=== PATIENT | male | born 1965 | race African-American/Black ===

== ENCOUNTER 2022-11-05 14:15 | Emergency (ER) | payer OTHER ==
[~2022-11-05] VITALS: Ht 188 cm; Wt 118.0 kg
[2022-11-05 14:32] VITALS: BP 170/85; PULSE 70; RESP 18; TEMP 97.9; O2SAT 99
[2022-11-05 14:59] LABS: HEMATOCRIT. 37.3 % (42.0-52.0); HEMOGLOBIN. 11.4 g/dL (14.0-18.0); MEAN CORPUSCULAR HEMOGLOBIN 21.2 pg (28.0-32.0); MEAN CORPUSCULAR HGB CONC 30.4 g/dL (31.0-37.0); MEAN CORPUSCULAR VOLUME 69.7 fL (80.0-94.0); MEAN PLATELET VOLUME 7.8 fl (7.4-10.4); PLATELET 298 x1000/uL (130-400); RED BLOOD CELL COUNT 5.35 mill/uL (4.7-6.1); RED CELL DISTRIBUTION WIDTH 18.5 % (11.6-14.6); WHITE BLOOD COUNT 6.4 x1000/uL (4.5-11.0)
[2022-11-05 15:08] LABS: INR 1.1; PROTHROMBIN TIME 12.2 sec (9.6-11.0)
[2022-11-05 15:11] LABS: DIFFERENTIAL COMMENT 1
[2022-11-05 15:23] LABS: CHLORIDE 113 mEq/L (98-107); INDEX HEMOLYSI 3 (1-3); INDEX ICTERIC 1 (1-4); INDEX LIPEMIC 1 (1-3); SODIUM 141 mEq/L (136-145)
[2022-11-05 15:37] LABS: ALANINE AMINOTRANSFERASE 29 IU/L (13-61); ALBUMIN 2.8 g/dL (3.4-5.0); ASPARTATE AMINOTRANSFERASE 32 IU/L (15-37); BILIRUBIN TOTAL 0.7 mg/dL (0.1-1.0); CALCIUM 8.3 mg/dL (8.5-10.1); CARBON DIOXIDE 26 mEq/L (21-32); CREATININE 1.6 mg/dL (0.6-1.3); GLUCOSE 72 mg/dL (70-105); NT PRO B-TYPE NATRIURETIC PEP 14102 pg/mL (5-125); PROTEIN TOTAL 7.4 g/dL (6.0-8.3); TROPONIN I HIGH SENSITIVITY 44 ng/L (<78); UREA NITROGEN BLOOD 27 mg/dL (7-21)
[2022-11-05 15:55] LABS: MICROCYTOSIS 3+; PLATELET ESTIMATE NORMAL
[2022-11-05 15:56] LABS: ANISOCYTOSIS 2+; HYPOCHROMASIA 2+
[2022-11-05] MEDS ORDERED: FURO-151 MT (17:46)
[2022-11-05] MEDS ORDERED: FUROSEMIDE 40MG TABLET PO ONE (18:00)
== END 2022-11-05 18:22 | disposition home or self-care (01) ==
LOC: ER 14:42
DX: I11.0 Hypertensive heart disease with heart failure (principal); I50.9 Heart failure, unspecified; N17.9 Acute kidney failure, unspecified; Z86.59 Personal history of other mental and behavioral disorders
CPT/HCPCS: 36415; 71045; 80053; 83880; 84484; 85025; 93005; 99285

== ENCOUNTER 2024-03-10 12:46 | Emergency (ER) | payer MEDICAID, MEDICARE ==
[~2024-03-10] VITALS: Ht 195.6 cm; Wt 117.9 kg
[~2024-03-10 12:46] MED LIST: FURO-151 MT
[2024-03-10 13:17] VITALS: BP 166/76; PULSE 60; RESP 16; TEMP 98.5; O2SAT 98
[2024-03-10] MEDS: IBUPROFEN 600MG TABLET PO ONE (15:23)
[2024-03-10] MEDS ORDERED: ACET-2708 MT (16:39)
== END 2024-03-10 16:56 | disposition home or self-care (01) ==
LOC: ER 14:29
DX: M79.671 Pain in right foot (principal); M25.561 Pain in right knee; I11.9 Hypertensive heart disease without heart failure; I50.9 Heart failure, unspecified
CPT/HCPCS: 73630; 99283